=== PATIENT | male | born 1960 | race Caucasian/White ===

== ENCOUNTER 2018-10-14 19:13 | Emergency (ER) | payer OTHER ==
--- OUTSIDE RECORDS SUMMARY | 2018-10-14 19:14 | XMS REPORT | Clinical Summary ---
:1960 Author Organization [facility] Address [address] [place] [address] Care Team Providers Name Role Phone Yane Primary Care Provider Allergies No Known Allergies Medications Medication Sig Dispensed Refills Start Date End Date Status DULoxetine (CYMBALTA) Take 30 mg by 0 Active 30 MG capsule mouth daily. metFORMIN (GLUMETZA) Take 2,000 mg by 0 Active 500 MG (MOD) 24 hr mouth daily with tablet breakfast. ferrous sulfate 325 Take 1 tablet 60 tablet 0 07/27/2017 07/27/2018 (65 FE) MG tablet (325 mg total) by mouth 2 (two) times daily. 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 Last Filed Vital Signs Not on file Plan of Treatment Health Maintenance Due Date Last Done Comments INFLUENZA VACCINE 05/31/2018 Implants Implanted Type Area Administrative Assistant Front Desk Device Shelf Model / Identifier Expiration Serial / Date Lot Dontae Ibrahim 5x6 [id number] - [id number] Cement/Fi N/A: GENZYME HEIDI: 02/27/2019 [id number] / Implanted: Qty: 1 on 01/27/2017 by Fish Lucia MD llpetar/Chana Abdomen BIO-SURG / sive [id number] Set Stent Injection 6x28cm 225-115 - [id number] Uro Stent Right: [place] [id number] / Implanted: Qty: 1 on 01/27/2017 by Fish Lucia MD [employer]: ONCOLOGY / [id number] Procedures Procedure Name Priority Date/Time Associated Diagnosis Comments TRANSFUSE LEUKO-REDUCED Routine 10/07/2018 5:23 PM FINISHING INSPECTOR RED BLOOD CELLS after 10/13/2017 Results Transfuse Leuko-Red RBC (10/07/2018 5:23 PM FINISHING INSPECTOR)after 10/13/2017 Insurance Payer Benefit Plan / Group Subscriber ID Type Phone Address [employer] [facility] xxxxxxxxxxx HMO/POS Advance Directives For more information, please contact:[address] [phone] Code Status Date Activated Date Inactivated Comments Full Code 07/22/2017 8:26 AM 07/27/2017 6:58 PM This code status was determined by: Patient Full Code 01/27/2017 9:26 AM 02/02/2017 3:52 PM This code status was determined by: Patient
--- OUTSIDE RECORDS SUMMARY | 2018-10-14 19:15 | XMS REPORT ---
:1960 [facility] [address] [place] [address] Care Team Providers Name Role Phone FISH LUCIA Unavailable Unavailable Problems This patient has no known problems. Allergies, Adverse Reactions, Alerts This patient has no known allergies or adverse reactions. Medications This patient has no known medications. Results Test Description Test Time Test Comments Text Results Atomic Results Result Comments POCT-GLUCOSE METER 2017-07-27 12:52:00 Test Item Value Reference Range Comments POC-GLUCOSE METER (BEAKER) (test 195 mg/dL 70-110 TESTED AT [address] spun=6946) [place] [address] POCT-GLUCOSE [id number] 07:47:00 Test Item Value Reference Range Comments POC-GLUCOSE METER (BEAKER) 136 mg/dL 70-110 TESTED AT [address] (test vzet=7119) [place] [address] HEMOGLOBIN AND [id number] 05:26:00 Test Item Value Reference Range Comments HEMOGLOBIN (BEAKER) (test hkmb=901) 8.3 GM/DL 13.7-17.5 HEMATOCRIT (BEAKER) (test ivpg=858) 27.2 % 40.1-51.0 POCT-GLUCOSE [id number] 21:51:00 Test Item Value Reference Range Comments POC-GLUCOSE METER (BEAKER) 164 mg/dL 70-110 TESTED AT [address] (test majz=6751) [place] [address] POCT-GLUCOSE [id number] 17:44:00 Test Item Value Reference Range Comments POC-GLUCOSE METER (BEAKER) 134 mg/dL 70-110 TESTED AT [address] (test jemv=2798) [place] [address] POCT-GLUCOSE [id number] 12:46:00 Test Item Value Reference Range Comments POC-GLUCOSE METER (BEAKER) 145 mg/dL 70-110 TESTED AT [facility] [address] [facility] (test uoen=3229) [facility] [address] POCT-GLUCOSE [id number] 08:57:00 Test Item Value Reference Range Comments POC-GLUCOSE METER (BEAKER) 121 mg/dL 70-110 TESTED AT [address] (test qvuf=9542) [facility] [address] POCT-GLUCOSE [id number] 08:32:00 Test Item Value Reference Range Comments POC-GLUCOSE METER (BEAKER) 158 mg/dL 70-110 TESTED AT [address] (test vgzz=6925) [facility] [address] HEMOGLOBIN AND [id number] 07:44:00 Test Item Value Reference Range Comments HEMOGLOBIN (BEAKER) (test epmu=952) 6.5 GM/DL 13.7-17.5 HEMATOCRIT (BEAKER) (test qxtm=443) 22.0 % 40.1-51.0 BASIC METABOLIC [id number] 05:44:00 Test Item Value Reference Range Comments SODIUM (BEAKER) (test 133 meq/L 136-145 qbqj=277) POTASSIUM (BEAKER) (test 4.3 meq/L 3.5-5.1 rvef=839) CHLORIDE (BEAKER) (test 111 meq/L 98-107 rgoa=842) CO2 (BEAKER) (test 15 meq/L 22-29 wlwc=089) BLOOD UREA NITROGEN 19 mg/dL 7-21 (BEAKER) (test fbwq=244) CREATININE (BEAKER) (test 1.23 mg/dL 0.57-1.25 xhqn=363) GLUCOSE RANDOM (BEAKER) 117 mg/dL 70-105 (test ciws=583) CALCIUM (BEAKER) (test 8.5 mg/dL 8.4-10.2 cvld=210) EGFR (BEAKER) (test 61 mL/min/1.73 sq m ESTIMATED GFR IS NOT fzhz=5636) ACCURATE CREATININE CLEARANCE IN PREDICTING GLOMERULAR FILTRATION RATE. ESTIMATED GFR IS NOT APPLICABLE FOR DIALYSIS PATIENTS. CBC (HEMOGRAM ONLY)2017-07-26 04:51:00 Test Item Value Reference Range Comments WHITE BLOOD CELL COUNT (BEAKER) (test trke=405) 7.8 K/ L 3.5-10.5 RED BLOOD CELL COUNT (BEAKER) (test mplg=635) 2.69 M/ L 4.63-6.08 HEMOGLOBIN (BEAKER) (test ndri=528) 6.9 GM/DL 13.7-17.5 HEMATOCRIT (BEAKER) (test rrdf=646) 23.4 % 40.1-51.0 MEAN CORPUSCULAR VOLUME (BEAKER) (test apns=018) 87.0 fL 79.0-92.2 MEAN CORPUSCULAR HEMOGLOBIN (BEAKER) (test 25.7 pg 25.7-32.2 znou=591) MEAN CORPUSCULAR HEMOGLOBIN CONC (BEAKER) (test 29.5 GM/DL 32.3-36.5 kjbm=454) RED CELL DISTRIBUTION WIDTH (BEAKER) (test 15.9 % 11.6-14.4 ybua=468) PLATELET COUNT (BEAKER) (test rveo=343) 337 K/CU MM 150-450 MEAN PLATELET VOLUME (BEAKER) (test cbaz=758) 9.1 fL 9.4-12.4 NUCLEATED RED BLOOD CELLS (BEAKER) (test 0 /100 WBC 0-0 wkiz=144) POCT-GLUCOSE [id number] 18:10:00 Test Item Value Reference Range Comments POC-GLUCOSE METER (BEAKER) 161 mg/dL 70-110 TESTED AT [address] (test dqni=6952) [place] [address] POCT-GLUCOSE [id number] 12:16:00 Test Item Value Reference Range Comments POC-GLUCOSE METER (BEAKER) 165 mg/dL 70-110 TESTED AT [address] (test zadt=9201) [place] [address] POCT-GLUCOSE [id number] 08:20:00 Test Item Value Reference Range Comments POC-GLUCOSE METER (BEAKER) 165 mg/dL 70-110 TESTED AT [address] (test rixb=5943) [place] [address] POCT-GLUCOSE [id number] 22:13:00 Test Item Value Reference Range Comments POC-GLUCOSE METER (BEAKER) 178 mg/dL 70-110 TESTED AT [address] (test ulop=9641) [place] [address] POCT-GLUCOSE [id number] 17:55:00 Test Item Value Reference Range Comments POC-GLUCOSE METER (BEAKER) 130 mg/dL 70-110 TESTED AT [address] (test wogv=3389) [place] [address] POCT-GLUCOSE [id number] 14:50:00 Test Item Value Reference Range Comments POC-GLUCOSE METER (BEAKER) 242 mg/dL 70-110 TESTED AT [address] (test nrat=1694) [place] [address] TISSUE [id number] 14:06:00Surgical Pathology Report Case: [id number] Authorizing Provider: Fish Lucia MD Collected: 07/22/2017 1001 Ordering Location: [facility] Received: 07/22/2017 1059 SERVICES Pathologist: Sarah Tran MD Specimen: Soft Tissue, Other, illeostomy A. SKIN AND ILEUM, ILEOSTOMY SITE , RESECTION: - ILEOCUTANEOUS ANASTOMOSIS WITH REACTIVE CHANGES; NEGATIVE FOR MALIGNANCY Signing Pathologist Direct Phone Line: [phone], History of rectal cancerIleostomyThe specimen is received in a formalin-filled container and labeled with the patient's information and labeled "ileostomy tissue" and consists of a segment of small bowel measuring 3.5 cm in length x 2 cm in diameter with a central skin component measuring 2.5 x 1.5 cm. Serosa is clemons-red and dull with numerous adhesions with no other abnormalities seen. Section code: A1, stapled margin en face; A2, skin component and small bowel. CG/pl Performed.POCT-GLUCOSE [id number] 08:03:00 Test Item Value Reference Range Comments POC-GLUCOSE METER (BEAKER) 142 mg/dL 70-110 TESTED AT [place] [id number] [facility] (test eecf=0066) [place] [address] [id number] 06:08:00 Test Item Value Reference Range Comments PHOSPHORUS (BEAKER) (test fxnb=118) 2.5 mg/dL 2.3-4.7 [id number] 06:08:00 Test Item Value Reference Range Comments MAGNESIUM (BEAKER) (test dzwc=225) 1.7 mg/dL 1.6-2.6 BASIC METABOLIC [id number] 06:08:00 Test Item Value Reference Range Comments SODIUM (BEAKER) (test 132 meq/L 136-145 qkvu=248) POTASSIUM (BEAKER) (test 4.2 meq/L 3.5-5.1 vmeg=309) CHLORIDE (BEAKER) (test 110 meq/L 98-107 oiec=190) CO2 (BEAKER) (test 14 meq/L 22-29 msav=333) BLOOD UREA NITROGEN 29 mg/dL 7-21 (BEAKER) (test vamf=328) CREATININE (BEAKER) (test 1.55 mg/dL 0.57-1.25 ynxl=436) GLUCOSE RANDOM (BEAKER) 105 mg/dL 70-105 (test ueyw=723) CALCIUM (BEAKER) (test 8.4 mg/dL 8.4-10.2 xbdq=068) EGFR (BEAKER) (test 47 mL/min/1.73 sq m ESTIMATED GFR IS NOT upui=7649) ACCURATE CREATININE CLEARANCE IN PREDICTING GLOMERULAR FILTRATION RATE. ESTIMATED GFR IS NOT APPLICABLE FOR DIALYSIS PATIENTS. POCT-GLUCOSE [id number] 23:02:00 Test Item Value Reference Range Comments POC-GLUCOSE METER (BEAKER) 152 mg/dL 70-110 TESTED AT [address] (test whkm=6124) [place] [address] POCT-GLUCOSE [id number] 17:29:00 Test Item Value Reference Range Comments POC-GLUCOSE METER (BEAKER) 105 mg/dL 70-110 TESTED AT [address] (test dldd=1714) [place] [address] POCT-GLUCOSE [id number] 12:27:00 Test Item Value Reference Range Comments POC-GLUCOSE METER (BEAKER) 181 mg/dL 70-110 TESTED AT [address] (test jvir=6315) [place] [address] [id number] 06:00:00 Test Item Value Reference Range Comments PHOSPHORUS (BEAKER) (test pcvl=161) 4.6 mg/dL 2.3-4.7 [id number] 06:00:00 Test Item Value Reference Range Comments MAGNESIUM (BEAKER) (test fmoo=417) 1.4 mg/dL 1.6-2.6 BASIC METABOLIC [id number] 06:00:00 Test Item Value Reference Range Comments SODIUM (BEAKER) (test 135 meq/L 136-145 szdy=139) POTASSIUM (BEAKER) (test 5.2 meq/L 3.5-5.1 bxec=052) CHLORIDE (BEAKER) (test 113 meq/L 98-107 dhdy=268) CO2 (BEAKER) (test 14 meq/L 22-29 ouzn=243) BLOOD UREA NITROGEN 36 mg/dL 7-21 (BEAKER) (test gizn=776) CREATININE (BEAKER) (test 1.85 mg/dL 0.57-1.25 qbuq=051) GLUCOSE RANDOM (BEAKER) 91 mg/dL 70-105 (test liyl=248) CALCIUM (BEAKER) (test 8.8 mg/dL 8.4-10.2 cjej=905) EGFR (BEAKER) (test 38 mL/min/1.73 sq m ESTIMATED GFR IS NOT oleg=3172) ACCURATE CREATININE CLEARANCE IN PREDICTING GLOMERULAR FILTRATION RATE. ESTIMATED GFR IS NOT APPLICABLE FOR DIALYSIS PATIENTS. POCT-GLUCOSE [id number] 05:31:00 Test Item Value Reference Range Comments POC-GLUCOSE METER (BEAKER) 78 mg/dL 70-110 TESTED AT [address] (test ocxf=6656) [place] [address] POCT-GLUCOSE [id number] 18:33:00 Test Item Value Reference Range Comments POC-GLUCOSE METER (BEAKER) 165 mg/dL 70-110 TESTED AT [address] (test fyth=5830) [place] [address] POCT-GLUCOSE [id number] 11:03:00 Test Item Value Reference Range Comments POC-GLUCOSE METER (BEAKER) 135 mg/dL 70-110 TESTED AT [address] (test udxh=4129) [place] [address] BASIC METABOLIC [id number] 09:32:00 Test Item Value Reference Range Comments SODIUM (BEAKER) (test 133 meq/L 136-145 lhbg=681) POTASSIUM (BEAKER) (test 5.1 meq/L 3.5-5.1 ecde=757) CHLORIDE (BEAKER) (test 110 meq/L 98-107 kquy=527) CO2 (BEAKER) (test 15 meq/L 22-29 iwev=105) BLOOD UREA NITROGEN 30 mg/dL 7-21 (BEAKER) (test jeqr=549) CREATININE (BEAKER) (test 1.79 mg/dL 0.57-1.25 cect=469) GLUCOSE RANDOM (BEAKER) 116 mg/dL 70-105 (test drvq=726) CALCIUM (BEAKER) (test 9.1 mg/dL 8.4-10.2 ycew=802) EGFR (BEAKER) (test 40 mL/min/1.73 sq m ESTIMATED GFR IS NOT xveb=5824) ACCURATE CREATININE CLEARANCE IN PREDICTING GLOMERULAR FILTRATION RATE. ESTIMATED GFR IS NOT APPLICABLE FOR DIALYSIS PATIENTS. POCT-GLUCOSE [id number] 08:45:00 Test Item Value Reference Range Comments POC-GLUCOSE METER (BEAKER) 131 mg/dL 70-110 TESTED AT [address] (test mbim=4813) [place] [address] POCT-GLUCOSE [id number] 08:14:00 Test Item Value Reference Range Comments POC-GLUCOSE METER (BEAKER) 159 mg/dL 70-110 TESTED AT [address] (test ubur=9708) [place] [address] POCT-GLUCOSE [id number] 20:48:00 Test Item Value Reference Range Comments POC-GLUCOSE METER (BEAKER) 163 mg/dL 70-110 TESTED AT [address] (test gyju=4288) [place] [address] POCT-GLUCOSE [id number] 16:58:00 Test Item Value Reference Range Comments POC-GLUCOSE METER (BEAKER) 144 mg/dL 70-110 TESTED AT [address] (test qqzu=9373) [place] [address] POCT-GLUCOSE [id number] 11:21:00 Test Item Value Reference Range Comments POC-GLUCOSE METER (BEAKER) 221 mg/dL 70-110 TESTED AT [address] (test bzwf=1026) [place] [address] POCT-GLUCOSE [id number] 08:46:00 Test Item Value Reference Range Comments POC-GLUCOSE METER (BEAKER) 144 mg/dL 70-110 TESTED AT [address] (test ugfd=9474) [place] [address] CBC (HEMOGRAM ONLY)2017-02-01 08:12:00 Test Item Value Reference Range Comments WHITE BLOOD CELL COUNT (BEAKER) (test rzav=195) 5.0 K/ L 4.0-10.0 RED BLOOD CELL COUNT (BEAKER) (test pfzd=138) 3.57 M/ L 4.20-5.80 HEMOGLOBIN (BEAKER) (test jedt=320) 8.7 GM/DL 13.0-16.8 HEMATOCRIT (BEAKER) (test mtlx=310) 28.1 % 40.0-50.0 MEAN CORPUSCULAR VOLUME (BEAKER) (test nvqz=668) 78.6 fL 82.0-98.0 MEAN CORPUSCULAR HEMOGLOBIN (BEAKER) (test 24.2 pg 27.0-33.0 ajxz=565) MEAN CORPUSCULAR HEMOGLOBIN CONC (BEAKER) (test 30.8 GM/DL 32.0-36.0 fpdf=907) RED CELL DISTRIBUTION WIDTH (BEAKER) (test 15.8 % 10.3-14.2 nmyd=850) PLATELET COUNT (BEAKER) (test dpwo=531) 246 K/CU MM 150-430 MEAN PLATELET VOLUME (BEAKER) (test gpcw=282) 7.3 fL 6.5-10.5 NUCLEATED RED BLOOD CELLS (BEAKER) (test 0 /100 WBC 0-0 qjrv=596) [id number] 07:25:00 Test Item Value Reference Range Comments MAGNESIUM (BEAKER) (test wzxb=317) 1.3 mg/dL 1.6-2.6 BASIC METABOLIC [id number] 07:25:00 Test Item Value Reference Range Comments SODIUM (BEAKER) (test 139 meq/L 136-145 pvvu=776) POTASSIUM (BEAKER) (test 4.3 meq/L 3.5-5.1 bbtf=802) CHLORIDE (BEAKER) (test 109 meq/L 98-107 xrin=496) CO2 (BEAKER) (test 24 meq/L 22-29 wdux=681) BLOOD UREA NITROGEN 5 mg/dL 7-21 (BEAKER) (test hbaw=644) CREATININE (BEAKER) (test 0.83 mg/dL 0.57-1.25 echu=232) GLUCOSE RANDOM (BEAKER) 139 mg/dL 70-105 (test jghh=313) CALCIUM (BEAKER) (test 8.3 mg/dL 8.4-10.2 cfqm=276) EGFR (BEAKER) (test 97 mL/min/1.73 sq m ESTIMATED GFR IS NOT emuy=3152) ACCURATE CREATININE CLEARANCE IN PREDICTING GLOMERULAR FILTRATION RATE. ESTIMATED GFR IS NOT APPLICABLE FOR DIALYSIS PATIENTS. [id number] 07:15:00 Test Item Value Reference Range Comments PHOSPHORUS (BEAKER) (test bevm=807) 2.5 mg/dL 2.3-4.7 POCT-GLUCOSE [id number] 21:25:00 Test Item Value Reference Range Comments POC-GLUCOSE METER (BEAKER) 163 mg/dL 70-110 TESTED AT [address] (test dqsw=1814) [place] [address] POCT-GLUCOSE [id number] 17:47:00 Test Item Value Reference Range Comments POC-GLUCOSE METER (BEAKER) 145 mg/dL 70-110 TESTED AT [address] (test iphp=1796) [place] [address] POCT-GLUCOSE [id number] 11:31:00 Test Item Value Reference Range Comments POC-GLUCOSE METER (BEAKER) 176 mg/dL 70-110 TESTED AT [address] (test rppv=1258) [facility] [address] POCT-GLUCOSE [id number] 08:43:00 Test Item Value Reference Range Comments POC-GLUCOSE METER (BEAKER) 140 mg/dL 70-110 TESTED AT [address] (test dzkc=0021) [place] [address] POCT-GLUCOSE [id number] 22:23:00 Test Item Value Reference Range Comments POC-GLUCOSE METER (BEAKER) 141 mg/dL 70-110 TESTED AT [address] (test mqio=1483) [place] [address] POCT-GLUCOSE [id number] 17:41:00 Test Item Value Reference Range Comments POC-GLUCOSE METER (BEAKER) 105 mg/dL 70-110 TESTED AT [address] (test tsox=8962) [place] [address] POCT-GLUCOSE [id number] 17:37:00 Test Item Value Reference Range Comments POC-GLUCOSE METER (BEAKER) 158 mg/dL 70-110 TESTED AT [address] (test dygv=0652) [place] [address] TISSUE [id number] 16:27:00Surgical Pathology Report Case: [id number] Authorizing Provider: Fish Lucia MD Collected: 01/27/2017 1403 Ordering Location: [facility] Received: 01/27/2017 1407 SERVICES Pathologist: Paige Maldonado MD Specimens: A) - Urinary Bladder, bladder tissue, rule out rectal cancer B) - Large Intestine, Colon - Sigmoid, MID RECTUM AND SIGMOID C) - LargeIntestine, NOS, DISTAL ANASTOMOTIC DONUT A. URINARY BLADDER, RULE OUT RECTAL CANCER, BIOPSY:FIBROUS AND ADIPOSE TISSUENEGATIVE FOR MALIGNANCYB. COLON, SIGMOID AND MID RECTUM, LOW ANTERIOR RESECTION:ADENOCARCINOMA, MODERATELY DIFFERENTIATEDMAXIMUM TUMOR SIZE=7 CMTUMOR INVADES SUBSEROSAL ADIPOSE TISSUENO DEFINITIVE LYMPH/VASCULAR INVASIONNO LOSS OF NUCLEAR EXPRESSION OFMMR PROTEINS THE FINDINGS ARE NOT SUPPORTIVE FOR A REPLICATION ERROR-POSITIVE TUMORpT3 pN0 pMX (PLEASE SEE SYNOPTIC REPORT)THIRTY-THREE LYMPH NODES NEGATIVE FOR METASTATIC TUMOR (0/33)ONE TUBULAR ADENOMA, NO ASSOCIATED HIGH GRADE DYSPLASIATWO HYPERPLASTIC POLYPSRESECTION MARGINS ARE NEGATIVE FOR TUMORC. COLON , DISTAL ANASTOMOTIC DONUT, EXCISION:BENIGN COLONIC MUCOSA Preliminary result electronically signed by Paige Maldonado MD on 2016 at 2:47 PMImmunohistochemistry testing for Mismatch Repair (MMR) proteins was performed on block B13 with appropriate controls and shows the following: Results: MLH1: Intact nuclear expression MSH2: Intact nuclear expression MSH6: Intact nuclear expression PMS2: Intact nuclear expression IHC Interpretation: No loss of nuclear expression of MMR proteins:low probability of microsatellite instability-high (MSI-H)# #There are exceptions to the above IHC interpretations. These results should not be considered in isolation, and clinical correlation with genetic counseling is recommended to assess the need for germline testing.COLON AND RECTUM: Resection, Including Transanal Disk Excision of Rectal Neoplasms (Colon Res - All Specimens)SPECIMEN Specimen: Sigmoid colon Specimen: Rectum Procedure: Low anterior resection Macroscopic Intactness of Mesorectum: CompleteTUMOR Primary Tumor Site: Rectosigmoid Histologic Type: Adenocarcinoma Histologic Grade: Low- grade (well differentiated to moderately differentiated) TumorSize: Greatest dimension (cm): 7 cm Additional Dimension (cm): 4.5 cm Additional Dimension (cm): 3 cm Tumor Deposits: Not identified Site( s) of Direct Extent of Tumor: Noneidentified Microscopic Tumor Extension : Tumor invades through the muscularis propria into thesubserosal adipose tissue or the nonperitonealized pericolic or perirectal soft tissues but does notextend to the serosal surface Macroscopic Tumor Perforation: Not Identified Lymph-Vascular Invasion: Not identified Perineural Invasion: Not identified Treatment Effect (applicable to carcinomas treated with neoadjuvant therapy): Not knownMARGINS Uninvolved Margins: All margins uninvolved by invasive carcinoma Distance of Invasive Carcinoma from Closest Margin:Specify (cm): 0.8 cm Specify Margin: Circumferential (Radial) or Mesenteric Margins: ForResection Specimens Only Proximal Margin: Proximal Margin: Uninvolved by invasive carcinoma Distance of Tumor from Margin: Specify (cm): 2 cm Distal Margin: Distal Margin: Uninvolved by invasive carcinoma Distance of Tumor from Margin (required onlyfor rectal tumors): Specify (cm): 19 cm Circumferential (Radial) Margin: Uninvolved by invasive carcinoma Distance of Tumor from Margin (required only for rectal tumors): Specify (cm) : 0.8 cm Mesenteric Margin: Not applicable Margin Status: Uninvolved by invasive carcinomaLYMPH NODES Regional Lymph Nodes: Number of Lymph Nodes Examined: Specify number: 33 Number of Lymph Nodes Involved: Specify number: 0STAGE (pTNM, AJCC 7th ed.) TNM Descriptors: Not applicable Primary Tumor (pT): pT3: Tumor invades through the muscularis propria into pericolorectal tissues Regional Lymph Nodes (pN): pN0: No regional lymph node metastasis Distant Metastasis (pM): Not applicable - pM cannot be determined from the submitted specimen(s)ADDITIONAL FINDINGS Additional Pathologic Findings: Adenoma(s) Additional Pathologic Findings: Other polyps (specify types): hyperplastic peezvo92530; 77038; 49396; 64945; 21979; 44109 x 3A. Received fresh for intraoperative consultation labeled "bladder tissue, rule out rectal cancer" are two pieces of clemons-pink cauterized tissue measuring 0.8 x 0.6 x 0.3 cm and 1.0 x 0.5 x 0.3 cm. Touch preparations are prepared and submitted as ATP1. The specimen is entirely submitted for frozen section diagnosis in A1FS. DDB. Received fresh and labeled with the patient's name and "mid rectum and sigmoid" antonio low anterior resection (29 cm length and ranging from 2.5 cm to 6 cm in diameter) with attached mesenteric fat (19 x 11 x 0.5 cm). The margin circumferences are 3.7 cm proximally and 2.5 cm distally.The specimen is opened to show a clemons-red, exophytic, polypoid mass (7 x 4.5 x 3 cm). The mass is 2 cm from the proximal margin, 19 cm from the distal margin and 0.8 cm from the circumferential margin. On cut surface, the mass appears to invade through the bowel wall and into the pericolonic fat and inked external surface. In addition, multiple pedunculated polyps are present throughout the colon. Polyp A measures 0.8 x 0.6 x 0.6 cm, is 1 cm proximal from the tumor. Polyp B measures 1 x 0.7 x 0.5 cm and is 1 cm proximal from the tumor. Polyp C is 1.3 x 1 x 0.6 cm and is 14 cm distal from the tumor. The uninvolved colonic mucosa is clemons-pink and unremarkable. Multiple clemons-pink lymph nodes are identified in the pericolonic fat ranging from 0.2 to 1.5 cm in greatest dimension. Ink code: Black, circumferential margin Section code: B1, distal margin; B2- B3, proximal margin ; B4, mesenteric margin; B5-B6, tumor to inked serosa; B7-B9, tumor inked serosa ; B10, possible tumor extending into soft tissue; B11-B12, tumor to inked deep margin; B13, tumor to normal mucosa proximal to the tumor; B14-B15, agency service representative sections of normal colonic mucosa; B16, polyp A; B17, polyp B; B18, polyp C; B19, one serially sectioned lymph node; B20-B26, one bisected lymph node in each cassette; B27-B28, four possible lymph nodes in each cassette ; B29-B32, five possible lymph nodes in each cassette; B33, three possible lymph nodes. DD/plC: Received in formalin labeled "distal anastomotic donut" is a single piece oftan-brown colonic mucosa with clemons-pink serosa. The specimen measures 1 cm in length and 2.3 cm in maximum diameter. A agency service representative section is submitted in cassette C1. DD/Quoc. BLADDER, RULE OUT RECTAL CANCER, BIOPSY, A1FS: - FIBROUS TISSUE - NEGATIVE FOR MALIGNANCY - REPORTED BY DR. MALDONADO TO OR ROOM 4 ON 01/27/2017 AT 2:25 PMPerformed.The following special studies were performed on this case and the interpretation is incorporated in the diagnostic report above: MLH-1, MSH-2, MSH-6, PMS2 (block B13).The immunohistochemistry test was developed and its performance characteristics determined by [facility], Pathology Laboratory. It has not been cleared or approved by the U.S. Food and Drug Administration. The FDA has determined that such clearance or approval is not necessary. The test is used for clinical purposes. It should not be regarded as investigationalor for research. This laboratory is certified under the Clinical Laboratory Improvement Amendments of 1988 (CLIA-88) as qualified to perform high complexity clinical laboratory testing.POCT-GLUCOSE [id number] 08:57: 00 Test Item Value Reference Range Comments POC-GLUCOSE METER (BEAKER) 97 mg/dL 70-110 TESTED AT [facility] [address] [facility] (test admo=7018) [facility] [address] CBC (HEMOGRAM ONLY)2017-01-30 06:40:00 Test Item Value Reference Range Comments WHITE BLOOD CELL COUNT (BEAKER) (test vwxx=180) 4.7 K/ L 4.0-10.0 RED BLOOD CELL COUNT (BEAKER) (test ezvv=833) 3.31 M/ L 4.20-5.80 HEMOGLOBIN (BEAKER) (test zhbm=051) 8.3 GM/DL 13.0-16.8 HEMATOCRIT (BEAKER) (test upmy=784) 26.3 % 40.0-50.0 MEAN CORPUSCULAR VOLUME (BEAKER) (test dykg=745) 79.5 fL 82.0-98.0 MEAN CORPUSCULAR HEMOGLOBIN (BEAKER) (test 25.0 pg 27.0-33.0 dpes=837) MEAN CORPUSCULAR HEMOGLOBIN CONC (BEAKER) (test 31.4 GM/DL 32.0-36.0 qugw=927) RED CELL DISTRIBUTION WIDTH (BEAKER) (test 15.9 % 10.3-14.2 gaoj=101) PLATELET COUNT (BEAKER) (test zqou=822) 213 K/CU MM 150-430 MEAN PLATELET VOLUME (BEAKER) (test xtrj=975) 7.4 fL 6.5-10.5 NUCLEATED RED BLOOD CELLS (BEAKER) (test 0 /100 WBC 0-0 davh=584) [id number] 06:24:00 Test Item Value Reference Range Comments PHOSPHORUS (BEAKER) (test ptgh=306) 1.5 mg/dL 2.3-4.7 BASIC METABOLIC [id number] 05:52:00 Test Item Value Reference Range Comments SODIUM (BEAKER) (test 139 meq/L 136-145 jmuv=715) POTASSIUM (BEAKER) (test 4.2 meq/L 3.5-5.1 tghc=577) CHLORIDE (BEAKER) (test 113 meq/L 98-107 fjep=693) CO2 (BEAKER) (test 21 meq/L 22-29 dtgi=968) BLOOD UREA NITROGEN 10 mg/dL 7-21 (BEAKER) (test ccwz=754) CREATININE (BEAKER) (test 0.91 mg/dL 0.57-1.25 synr=110) GLUCOSE RANDOM (BEAKER) 90 mg/dL 70-105 (test ueuq=990) CALCIUM (BEAKER) (test 7.9 mg/dL 8.4-10.2 rqfo=530) EGFR (BEAKER) (test 87 mL/min/1.73 sq m ESTIMATED GFR IS NOT oekj=0517) ACCURATE CREATININE CLEARANCE IN PREDICTING GLOMERULAR FILTRATION RATE. ESTIMATED GFR IS NOT APPLICABLE FOR DIALYSIS PATIENTS. [id number] 05:47:00 Test Item Value Reference Range Comments MAGNESIUM (BEAKER) (test thiy=645) 1.7 mg/dL 1.6-2.6 POCT-GLUCOSE [id number] 21:15:00 Test Item Value Reference Range Comments POC-GLUCOSE METER (BEAKER) 95 mg/dL 70-110 TESTED AT [address] (test pmxs=9375) [facility] [id number] POCT-GLUCOSE [id number] 20:59:00 Test Item Value Reference Range Comments POC-GLUCOSE METER (BEAKER) 78 mg/dL 70-110 TESTED AT [address] (test lbyq=0630) [facility] [id number] POCT-GLUCOSE [id number] 12:21:00 Test Item Value Reference Range Comments POC-GLUCOSE METER (BEAKER) 163 mg/dL 70-110 TESTED AT [address] (test nhem=4508) [place] [id number] BASIC METABOLIC [id number] 06:10:00 Test Item Value Reference Range Comments SODIUM (BEAKER) (test 137 meq/L 136-145 gnmt=879) POTASSIUM (BEAKER) (test 4.4 meq/L 3.5-5.1 abfy=839) CHLORIDE (BEAKER) (test 110 meq/L 98-107 afhh=391) CO2 (BEAKER) (test 19 meq/L 22-29 vkoz=298) BLOOD UREA NITROGEN 16 mg/dL 7-21 (BEAKER) (test cndv=403) CREATININE (BEAKER) (test 1.18 mg/dL 0.57-1.25 epyj=169) GLUCOSE RANDOM (BEAKER) 127 mg/dL 70-105 (test rowq=333) CALCIUM (BEAKER) (test 7.9 mg/dL 8.4-10.2 wkxp=996) EGFR (BEAKER) (test 64 mL/min/1.73 sq m ESTIMATED GFR IS NOT kbfx=3074) ACCURATE CREATININE CLEARANCE IN PREDICTING GLOMERULAR FILTRATION RATE. ESTIMATED GFR IS NOT APPLICABLE FOR DIALYSIS PATIENTS. [id number] 06:09:00 Test Item Value Reference Range Comments PHOSPHORUS (BEAKER) (test apyb=919) 1.7 mg/dL 2.3-4.7 [id number] 06:09:00 Test Item Value Reference Range Comments MAGNESIUM (BEAKER) (test sosb=430) 1.5 mg/dL 1.6-2.6 POCT-GLUCOSE [id number] 05:55:00 Test Item Value Reference Range Comments POC-GLUCOSE METER (BEAKER) 154 mg/dL 70-110 TESTED AT [address] (test uoii=8709) [facility] [address] POCT-GLUCOSE [id number] 00:10:00 Test Item Value Reference Range Comments POC-GLUCOSE METER (BEAKER) 120 mg/dL 70-110 TESTED AT [address] (test ccbs=1881) [place] [address] POCT-GLUCOSE [id number] 18:10:00 Test Item Value Reference Range Comments POC-GLUCOSE METER (BEAKER) 76 mg/dL 70-110 TESTED AT [place] [id number] [facility] (test uagv=1957) [place] [address] POCT-GLUCOSE [id number] 06:08:00 Test Item Value Reference Range Comments POC-GLUCOSE METER (BEAKER) 177 mg/dL 70-110 TESTED AT [place] [id number] [facility] (test yofn=1866) [place] [address] BASIC METABOLIC [id number] 05:35:00 Test Item Value Reference Range Comments SODIUM (BEAKER) (test 136 meq/L 136-145 omcv=563) POTASSIUM (BEAKER) (test 4.8 meq/L 3.5-5.1 ytwj=746) CHLORIDE (BEAKER) (test 110 meq/L 98-107 lunw=689) CO2 (BEAKER) (test 16 meq/L 22-29 prna=649) BLOOD UREA NITROGEN 22 mg/dL 7-21 (BEAKER) (test dsdg=459) CREATININE (BEAKER) (test 1.80 mg/dL 0.57-1.25 kdew=796) GLUCOSE RANDOM (BEAKER) 147 mg/dL 70-105 (test ftou=746) CALCIUM (BEAKER) (test 7.9 mg/dL 8.4-10.2 hqpn=080) EGFR (BEAKER) (test 40 mL/min/1.73 sq m ESTIMATED GFR IS NOT krss=4749) ACCURATE CREATININE CLEARANCE IN PREDICTING GLOMERULAR FILTRATION RATE. ESTIMATED GFR IS NOT APPLICABLE FOR DIALYSIS PATIENTS. HEMOGLOBIN AND [id number] 05:30:00 Test Item Value Reference Range Comments HEMOGLOBIN (BEAKER) (test eplg=244) 9.2 GM/DL 13.0-16.8 HEMATOCRIT (BEAKER) (test zsnz=370) 29.1 % 40.0-50.0 [id number] 05:25:00 Test Item Value Reference Range Comments PHOSPHORUS (BEAKER) (test mvio=493) 4.4 mg/dL 2.3-4.7 [id number] 05:25:00 Test Item Value Reference Range Comments MAGNESIUM (BEAKER) (test jjiw=814) 1.2 mg/dL 1.6-2.6 POCT-GLUCOSE [id number] 00:24:00 Test Item Value Reference Range Comments POC-GLUCOSE METER (BEAKER) 219 mg/dL 70-110 TESTED AT [address] (test rbwv=9613) [place] [address] POCT-GLUCOSE [id number] 18:17:00 Test Item Value Reference Range Comments POC-GLUCOSE METER (BEAKER) 251 mg/dL 70-110 TESTED AT [address] (test qrli=3587) [place] [address] POCT-GLUCOSE [id number] 10:30:00 Test Item Value Reference Range Comments POC-GLUCOSE METER (BEAKER) 125 mg/dL 70-110 TESTED AT [address] (test mich=7623) [place] [address]
[2018-10-14] MEDS ORDERED: KETOROLAC 30 MG/ML INJ ONE (20:20)
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
--- NOTE | 2018-10-15 16:22 | EKG ---
Test Date: 2018-10-14 Test Time: 19:36:29 Warp Tier: MEASUREMENT RESULTS: Intervals: Rate: 90 CA: 162 QRSD: 114 QT: 356 QTc: 435 [place]: P: 35 CA: 162 QRS: -33 T: 62 INTERPRETIVE STATEMENTS: Normal sinus rhythm Left axis deviation Voltage criteria for left ventricular hypertrophy Cannot rule out Septal infarct, age undetermined Abnormal ECG Compared to ECG 10/26/2017 19:49:32 Left-axis deviation now present Myocardial infarct finding still present Electronically Signed On 10-15-18 16:20:58 LEGAL MEDIATOR by Navin Montes De Oca
== END 2018-10-14 23:04 | disposition home or self-care (01) ==
LOC: ER 19:13
DX: S20.219A Contusion of unspecified front wall of thorax, initial encounter (principal); S20.212A Contusion of left front wall of thorax, initial encounter; S50.812A Abrasion of left forearm, initial encounter; V49.9XXA Car occupant (driver) (passenger) injured in unspecified traffic accident, initial encounter; Z85.038 Personal history of other malignant neoplasm of large intestine; E11.22 Type 2 diabetes mellitus with diabetic chronic kidney disease; I12.0 Hypertensive chronic kidney disease with stage 5 chronic kidney disease or end stage renal disease; N18.6 End stage renal disease
CPT/HCPCS: 71250; 93005; 96374; 99284

== ENCOUNTER 2024-05-09 11:06 | Day surgery (SDC) | payer OTHER ==
[2024-05-06 13:39] LABS: Absolute Basophils 0.1 K/uL (0-0.5); Absolute Eosinophils 0.2 K/uL (0-0.5); Absolute Monocytes 0.5 K/uL (0.1-1.3); Monocytes % 6.9 % (3.3-12.3)
[2024-05-06 13:50] LABS: Basophils % 1.1 % (0-1.3); Eosinophils % 2.8 % (0-4.4); Hematocrit 37.8 % (39.6-49.0); Hemoglobin 12.4 g/dL (13.6-17.9); Lymphocytes % 15.5 % (15.3-44.8); MCH 31.9 pg (27.0-35.0); MCHC 32.9 g/dL (32.0-36.0); MCV 96.8 fL (80-100); MPV 7.9 fL (7.6-11.3); Neutrophils % 73.7 % (41.7-73.7); Platelets 169 thou/uL (152-406); Red Cell Distribution Width 14.2 % (12.1-15.2)
[2024-05-06 13:51] LABS: Anion Gap 9.6 mEq/L (5.0-15.0); Potassium 3.6 mEq/L (3.5-5.1)
--- NOTE | 2024-05-06 14:04 | EKG ---
Test Date: 2024-05-06 Test Time: 13:23:52 Fare Collector: SIL MEASUREMENT RESULTS: Intervals: Rate: 74 LA: 186 QRSD: 136 QT: 414 QTc: 459 [place]: P: 17 LA: 186 QRS: -46 T: 22 INTERPRETIVE STATEMENTS: Normal sinus rhythm Left axis deviation Left ventricular hypertrophy with QRS widening Abnormal ECG Compared to ECG 10/14/2018 19:36:29 Myocardial infarct finding no longer present Electronically Signed On 05-06-24 14:04:15 CDT by Jeferson Martinez
--- NOTE | 2024-05-06 22:33 | RAD REPORT ---
EXAM DESCRIPTION: RAD - Chest Pa And Lat (2 Views) - 05/06/2024 1:32 pm CLINICAL HISTORY: PRE-OP. Hypertension COMPARISON: Chest Single View dated 10/26/2017; Chest Single View dated 04/02/2017; Chest Single View d ated 03/26/2017; Chest Single View dated 03/21/2017 TECHNIQUE: PA and lateral views of the chest were obtained. FINDINGS: Right IJ study rib dialysis catheter in place. The lungs are clear. Heart size is normal a nd central vasculature is within normal limits. No pleural effusion or pneumothorax seen. No acute [place] finding noted. IMPRESSION: No acute cardiopulmonary process.
[2024-05-09] MEDS ORDERED: CEFAZOLIN SODIUM 1 GM/VIAL ONE (11:27)
[2024-05-09] MEDS ORDERED: NA CHLORIDE 0.9% 500 ML ONE (11:27)
[2024-05-09] MEDS ORDERED: LIDOCAINE 2% MPF 5 ML VIAL ONE (13:41)
[2024-05-09] MEDS ORDERED: MIDAZOLAM HCL 2 MG/2 ML INJ ONE (13:41)
[2024-05-09] MEDS ORDERED: ONDANSETRON 4 MG/2 ML VIAL ONE (13:41)
[2024-05-09] MEDS ORDERED: FENTANYL CITR 100 MCG/2 ML ONE (13:41)
[2024-05-09] MEDS ORDERED: propofoL 200 MG/20 ML VIAL IV ONE (13:41)
--- NOTE | 2024-05-09 14:51 | P.BOP ---
Preoperative diagnosis: ESRD Postoperative diagnosis: same Primary procedure: Removal of cuffed hemodialysis catheter Estimated blood loss: <3cc Specimen: intact catheter Findings: as above Anesthesia: General Complications: None Transferred to: Recovery Room Condition: Good
[2024-05-09 15:54] VITALS: BP 127/72; TEMP 97.1; O2SAT 95
--- NOTE | 2024-05-10 05:00 | OP ---
Date of Procedure: 05/09/2024 Surgeon: Prashanth Garcia MD Preoperative Diagnosis: End-stage renal disease. Postoperative Diagnosis: End-stage renal disease. Procedures: Removal of cuffed hemodialysis catheter. Estimated Blood Loss: Less than 3 cc. Anesthesia: General plus local. Specimen: Intact catheter. Indications: This is the case of a 63-year-old patient, received dialysis through an AV fistula on t he left arm, so the hemodialysis catheter is ready to be removed. The patient came to us. The benef its, alternatives, and risks of excision fully explained, which include, but not limited to infection , bleeding, damage to adjacent structures, anesthesia complication, hematoma, pulmonary emboli, MT, e brodie . He also understands this may not relieve any symptoms. He might need more than one surgi raheem intervention. He understood, signed a consent. Description Of Procedure: Patient was brought to the operating room, placed in supine position. Ane sthesia was induced without complication. Right chest was prepped and draped in sterile fashion. A time-out was called. Local anesthesia was applied followed by dissection of the cuff of the catheter with the help of Bovie cauterizer from the subcutaneous tissue. Once we have a cuff release, we wer e able to pull the catheter with the patient in Trendelenburg position and then apply pressure for ab out 50 minutes. The subcutaneous tissue was closed with 3-0 chromic and the area was covered with st erile dressings. The catheter came back intact. The patient tolerated the procedure well. Patient was sent to recovery in stable condition. Disposition: Home. Activity: As tolerated. No heavy lifting. Follow up in my office in 1 week. Call for appointment [phone]. Keep area dry for next 48 hours, then after that, clean with soap and water, triple antibi otics and Band-Aid until completely epithelialized. HM/MODL Voice ID: [id number] Report ID: [id number]
== END 2024-05-09 15:40 | disposition home or self-care (01) ==
LOC: OR 11:06
PROVIDERS: ATTEND Surgery
PROC: 05PYX3Z Removal of Infusion Device from Upper Vein, External Approach (ICD-10-PCS; principal; 2024-05-09 12:30)
DX: N18.6 End stage renal disease (principal); Z45.2 Encounter for adjustment and management of vascular access device
CPT/HCPCS: 93005; 85025; 80048; 36415; 82947; 71046; 36589; J2704; J2001; J2250; J3010; J2405; J7040; J0690; 88300